=== PATIENT | female | born 1970 | race American Indian/Alaskan Native ===

== ENCOUNTER 2019-09-11 11:35 | Emergency (ER) | payer SELFPAY ==
--- NOTE | 2019-09-11 12:01 | Emergency Department Report ---
Blank Doc - Documentation Documentation: 49-year-old female that presents with flank and abdominal pain. This initial assessment/diagnostic orders/clinical plan/treatment(s) is/are subject to change based on patient's health status, clinical progression and re- assessment by fellow clinical providers in the ED. Further treatment and workup at subsequent clinical providers discretion. Patient/guardians urged not to elope from the ED as their condition may be serious if not clinically assessed and managed. Initial orders include: 1- Patient sent to [facility] for further evaluation and treatment 2- labs 3- UA
[2019-09-11 12:44] LABS: Bilirubin,Urine NEG (Negative); Blood,Urine SM (Negative); Color,Urine Amber (Yellow); Mucus,Urine 3+ /HPF; Urobilinogen,Urine < 2.0 mg/dL (<2.0)
[2019-09-11 13:25] LABS: Basophils % (Auto) 0.3 % (0.0-1.8); Eosinophils % (Auto) 0.5 % (0.0-4.3); Hematocrit 39.8 % (30.3-42.9); Hemoglobin 13.3 gm/dl (10.1-14.3); Lymphocytes # (Auto) 0.9 K/mm3 (1.2-5.4); Lymphocytes % (Auto) 15.1 % (13.4-35.0); Mean Corpuscular HGB Conc 33 % (30-34); Mean Corpuscular Volume 85 fl (79-97); Monocytes # (Auto) 0.5 K/mm3 (0.0-0.8); Platelet Count 385 K/mm3 (140-440); Red Blood Count 4.68 M/mm3 (3.65-5.03); Red Cell Distribution Width 14.2 % (13.2-15.2)
[2019-09-11 13:51] LABS: Albumin 4.2 g/dL (3.9-5); BUN/Creatinine Ratio 21; Blood Urea Nitrogen 15 mg/dL (7-17); Calcium 9.9 mg/dL (8.4-10.2); Hemolysis Index 0
[2019-09-11 14:00] LABS: Alanine Aminotransferase < 5 units/L (7-56)
[2019-09-11] MEDS ORDERED: ONDANSETRON 4 MG/2 ML INJ IV ONE (14:10)
[2019-09-11] MEDS ORDERED: MORPHINE 2 MG/1 ML INJ IV ONE (14:10)
--- NOTE | 2019-09-11 15:03 | XRay Report ---
ABDOMEN 3 VIEW(S) INDICATION / CLINICAL INFORMATION: constipation, abd pain. Stage III-4 cervical cancer. No bowel movement for one week. COMPARISON: None available. FINDINGS: TUBES / LINES: None. BOWEL GAS PATTERN: No dilated small or large bowel. Small air-fluid levels throughout the colon indic ating the presence of fluid. No large stool burden identified. FREE AIR / EXTRALUMINAL GAS: None seen. ADDITIONAL FINDINGS: No significant additional findings. LUNGS: Visualized lungs show no significant abnormality. Right Port-A-Cath is present with the tip at the SVC-right atrial junction in expected position. IMPRESSION: 1. No bowel obstruction or free air. No significant constipation noted. Signer Name: Farhana Medina MD Signed: 09/11/2019 2:59 PM Workstation Name: [id number]
--- NOTE | 2019-09-11 16:18 | Emergency Department Report ---
ED Abdominal Pain HPI - General Chief Complaint: Abdominal Pain Stated Complaint: BACK/ABD PAIN Time Seen by Provider: 09/11/19 12:00 Source: patient Mode of arrival: Ambulatory Limitations: No Limitations - History of Present Illness Initial Comments: 49-year-old female with history of stage III cervical cancer presents to ED with lower back and lower abdominal pain x1 week. Underwent last chemo and radiation treatments 3 weeks ago. Patient denies fever, nausea, vomiting. Reports constipation x 1.5 weeks Complaint: abdominal pain -: week(s) (1) Location: RLQ Radiation: none Migration to: no migration Severity: moderate Severity scale (0 -10): 10 Quality: cramping, aching Consistency: constant Improves With: nothing Worsens With: nothing Associated Symptoms: constipation. denies: nausea, vomiting, diarrhea, fever, chills, dysuria - Related Data Previous Rx's Medication Instructions Recorded Last Taken Type Ciprofloxacin HCl [Ciprofloxacin 500 mg PO Q12HR #20 tab 09/11/19 Unknown Rx TAB] Dicyclomine [Bentyl] 20 mg PO QID PRN #20 tablet 09/11/19 Unknown Rx Naproxen [Naprosyn] 500 mg PO BID #20 tablet 09/11/19 Unknown Rx metroNIDAZOLE [Flagyl] 500 mg PO Q12HR 10 Days #20 tab 09/11/19 Unknown Rx Allergies Allergy/AdvReac Type Severity Reaction Status Date / Time No Known Allergies Allergy Unverified 09/11/19 11:39 ED Review of Systems ROS: Stated complaint: BACK/ABD PAIN Other details as noted in HPI Comment: All other systems reviewed and negative Constitutional: denies: chills, fever Gastrointestinal: abdominal pain, constipation. denies: nausea, vomiting, diarrhea Genitourinary: denies: dysuria ED Past Medical Hx - Past Medical History Previous Medical History?: Yes Additional medical history: Stage 3 Cervial CA tx 08/2019 finished radiation - Surgical History Past Surgical History?: Yes Additional Surgical History: Tubal ligation - Social History Smoking Status: Current Every Day Smoker Substance Use Type: None - Medications Home Medications: Home Medications Medication Instructions Recorded Confirmed Last Taken Type Ciprofloxacin HCl [Ciprofloxacin 500 mg PO Q12HR #20 tab 09/11/19 Unknown Rx TAB] Dicyclomine [Bentyl] 20 mg PO QID PRN #20 tablet 09/11/19 Unknown Rx Naproxen [Naprosyn] 500 mg PO BID #20 tablet 09/11/19 Unknown Rx metroNIDAZOLE [Flagyl] 500 mg PO Q12HR 10 Days #20 tab 09/11/19 Unknown Rx ED Physical Exam - General Limitations: No Limitations General appearance: alert, in no apparent distress - Head Head exam: Present: atraumatic, normocephalic - Eye Eye exam: Present: normal appearance, EOMI - ENT ENT exam: Present: mucous membranes moist - Neck Neck exam: Present: normal inspection - Respiratory Respiratory exam: Present: normal lung sounds bilaterally. Absent: respiratory distress - Cardiovascular Cardiovascular Exam: Present: regular rate, normal rhythm - GI/Abdominal GI/Abdominal exam: Present: soft, tenderness (suprapubic and RLQ tenderness). Absent: distended - Extremities Exam Extremities exam: Present: normal inspection - Neurological Exam Neurological exam: Present: alert, oriented X3 - Psychiatric Psychiatric exam: Present: normal affect, normal mood - Skin Skin exam: Present: warm, dry, intact, normal color ED Course Vital Signs 09/11/19 09/11/19 09/11/19 11:49 12:00 13:09 Temperature 98.2 F 98.2 F Pulse Rate 89 85 Respiratory 20 20 Rate Blood Pressure 156/101 156/101 O2 Sat by Pulse 100 100 76 L Oximetry 09/11/19 09/11/19 09/11/19 13:15 13:17 13:30 Temperature Pulse Rate Respiratory 18 Rate Blood Pressure 148/101 156/103 O2 Sat by Pulse 90 99 100 Oximetry 09/11/19 09/11/19 09/11/19 13:45 14:00 14:15 Temperature Pulse Rate Respiratory Rate Blood Pressure 173/101 192/100 187/101 O2 Sat by Pulse 99 100 100 Oximetry 09/11/19 09/11/19 09/11/19 14:30 14:54 15:01 Temperature Pulse Rate Respiratory 18 Rate Blood Pressure 161/86 181/115 O2 Sat by Pulse 100 100 Oximetry 09/11/19 09/11/19 09/11/19 15:30 16:01 16:30 Temperature Pulse Rate Respiratory Rate Blood Pressure 186/97 166/66 157/91 O2 Sat by Pulse 100 100 99 Oximetry ED Medical Decision Making - Lab Data Result diagrams: 09/11/19 12:38 09/11/19 12:38 - Radiology Data Radiology results: report reviewed, image reviewed - Medical Decision Making - pt afebrile - CT negative for constipation or bowel obstruction; shows colitis - recent radiation therapy, possible cause of the colitis - labs unremarkable - abx given, advised to f/u w/ oncologist - return precautions given - Differential Diagnosis bowel obstruction, UTI, pain related to malignancy Critical care attestation.: If time is entered above; I have spent that time in minutes in the direct care of this critically ill patient, excluding procedure time. ED Disposition Clinical Impression: Colitis Disposition: DC- TO HOME OR SELFCARE Is pt being admited?: No Condition: Stable Instructions: Abdominal Pain (ED) Prescriptions: Dicyclomine [Bentyl] 20 mg PO QID PRN #20 tablet PRN Reason: abdominal pain Ciprofloxacin HCl [Ciprofloxacin TAB] 500 mg PO Q12HR #20 tab metroNIDAZOLE [Flagyl] 500 mg PO Q12HR 10 Days #20 tab Naproxen [Naprosyn] 500 mg PO BID #20 tablet Referrals: PRIMARY CARE [Referring] - 3-5 Days [facility] [Provider Group] - 3-5 Days
--- NOTE | 2019-09-11 16:29 | Cat Scan Report ---
CT ABDOMEN AND PELVIS WITH CONTRAST INDICATION / CLINICAL INFORMATION: MAIN: abd pain, back pain, hx cervical cancer severe low abd pain Omnipaque 300 100ml. TECHNIQUE: Axial CT images were obtained through the abdomen and pelvis after IV contrast. All CT scans at this location are performed using CT dose reduction for ALARA by means of automated exposure control. COMPARISON: None available. FINDINGS: LOWER CHEST: No significant abnormality. LIVER: No significant abnormality. GALLBLADDER: No significant abnormality. BILE DUCTS: No significant abnormality. PANCREAS: No significant abnormality. SPLEEN: No significant abnormality. ADRENALS: No significant abnormality. RIGHT KIDNEY and URETER: No significant abnormality. LEFT KIDNEY and URETER: No significant abnormality. STOMACH and SMALL BOWEL: No significant abnormality. COLON: Moderate to severe edema and thickening of the distal descending colon, sigmoid colon, and rec mahesh likely representing colitis. Moderate distention of the transverse and ascending colon which is f luid-filled. APPENDIX: No significant abnormality. PERITONEUM: No free fluid. No free air. No fluid collection. LYMPH NODES: No significant adenopathy. AORTA and ARTERIES: Mild atherosclerotic calcification without acute abnormality. IVC and VEINS: No significant abnormality. URINARY BLADDER: No significant abnormality. REPRODUCTIVE ORGANS: Small uterine fibroid. No acute abnormality. ADDITIONAL FINDINGS: None. SKELETAL SYSTEM: No significant abnormality. IMPRESSION: 1. Colitis of the distal colon and rectum. 2. Dilated, fluid-filled proximal colon. Signer Name: Farhana Median MD Signed: 09/11/2019 4:25 PM Workstation Name: [id number]
[2019-09-11] MEDS ORDERED: metroNIDAZOLE 500 MG TAB PO ONE (16:34)
[2019-09-11] MEDS ORDERED: levoFLOXacin 500 MG TAB PO ONE (16:34)
[2019-09-11 16:49] VITALS: BP 157/91
== END 2019-09-11 16:49 | disposition home or self-care (01) ==
LOC: ED 11:35
DX: K52.9 Noninfective gastroenteritis and colitis, unspecified (principal); F17.200 Nicotine dependence, unspecified, uncomplicated; Z79.899 Other long term (current) drug therapy; Z98.51 Tubal ligation status
CPT/HCPCS: 36415; 74022; 74177; 80053; 81001; 83690; 84703; 85025; 96374; 96375; 99284; J2270; J2405; Q9967